=== PATIENT | female | born 1975 | race Caucasian/White ===

== ENCOUNTER 2017-03-12 11:40 | Observation (INO) ==
[2017-03-12] MEDS ORDERED: MAGNESIUM SULF RIDER 4 GM in PREMIX 1 EACH IV PRN (11:46)
[2017-03-12] MEDS ORDERED: POTASSIUM CHLORIDE 20 MEQ TABLET PO PRN (11:46)
[2017-03-12] MEDS ORDERED: ZALEPLON 5 MG CAPSULE PO PRN (11:46)
[2017-03-12] MEDS ORDERED: ACETAMINOPHEN 325 MG TABLET PO PRN (11:46)
[2017-03-12] MEDS ORDERED: MAGNESIUM SULF RIDER 2 GM in PREMIX 1 EACH IV PRN (11:46)
[2017-03-12] MEDS ORDERED: diphenhydrAMINE CAP 25 MG CAPSULE PO PRN (11:46)
[2017-03-12] MEDS ORDERED: ONDANSETRON 4 MG/2 ML VIAL IV PRN (11:46)
[2017-03-12] MEDS ORDERED: LACTULOSE 20 GM/30 ML UDCUP PO PRN (11:46)
[2017-03-12] MEDS ORDERED: DOCUSATE SODIUM 100 MG CAPSULE PO PRN (11:46)
[2017-03-12] MEDS ORDERED: PANTOPRAZOLE 40 MG TABLET PO SCH (12:00)
[2017-03-12 14:40] LABS: Basophils % 0.4 % (0.0-0.8); Eosinophils # 0.1 10*3/uL (0.0-0.87); Hematocrit 42.4 VOL% (35.7-47.0); Hemoglobin 13.9 GM/DL (12.0-16.0); Immature Granulocytes % 0.2 %; Immature Granulocytes Absolute 0.01 #; Lymphocytes # 1.6 10*3/uL (1.4-4.0); Lymphocytes % 34.4 % (21.3-54.2); Mean Corpuscular HGB Conc 32.8 GM/DL (32-36); Mean Corpuscular Hemoglobin 28 PG (27-34); Mean Corpuscular Volume 86.4 FL (87-102); Mean Platelet Volume 10.4 FL (9.6-12.0); Monocytes # 0.4 10*3/uL (0.11-0.8); Monocytes % 8.2 % (1.7-12.7); Neutrophils # 2.6 10*3/uL (1.4-7.4); Neutrophils % 53.8 % (38.7-73.9); Platelet Count 256 T/CUMM (130-400); Red Blood Count 4.91 MC/CUMM (3.8-5.5); Red Cell Distribution Width 13.1 % (9.3-17.3); White Blood Count 4.7 T/CUMM (4-12)
[2017-03-12 15:07] LABS: Albumin 3.7 G/DL (3.4-5.0); Bilirubin,Total 0.5 MG/DL (0.2-1.0); Calcium 8.5 MG/DL (8.5-10.1); Osmolality,Calculated 277.4 MOS/KG (273-304); Potassium 3.8 MMOL/L (3.5-5.1); Total Protein 7.2 G/DL (6.4-8.3)
[2017-03-12 15:20] LABS: Troponin I Only < 0.015 NG/ML (0.00-0.045)
[2017-03-12] MEDS ORDERED: ENOXAPARIN 40 MG/0.4 ML SYRINGE SUBCUT SCH (16:30)
[2017-03-12 18:59] LABS: Troponin I Only < 0.015 NG/ML (0.00-0.045)
[2017-03-13 00:39] LABS: Apearance,Urine Slightly Hazy (Clear); Bilirubin,Urine Negative (Negative); Blood, Urine Small mg/dL (Negative); Glucose,Urine (UA) Negative (Negative); Ketones,Urine Negative (Negative); Mucus,Urine Occasional /LPF (Occasional); Nitrite,Urine Negative (Negative); Protein,Urine Negative; RBC,Urine 2 /HPF (0-4); Squamous Epithelial Cell,Urine Occasional /HPF (0-10); Urine Color Yellow (Yellow); Urine Specific Gravity 1.024 (1.001-1.035); Urine Urobilinogen < 2.0 EU/DL (0.2-1.0); WBC,Urine 1 /HPF (0-6)
[2017-03-13 04:49] LABS: Basophils % 0.6 % (0.0-0.8); Eosinophils # 0.2 10*3/uL (0.0-0.87); Eosinophils % 4.1 % (0.00-10.9); Hematocrit 38.1 VOL% (35.7-47.0); Hemoglobin 12.8 GM/DL (12.0-16.0); Immature Granulocytes % 0.4 %; Immature Granulocytes Absolute 0.02 #; Lymphocytes # 2.6 10*3/uL (1.4-4.0); Lymphocytes % 49.3 % (21.3-54.2); Mean Corpuscular HGB Conc 33.6 GM/DL (32-36); Mean Corpuscular Hemoglobin 29 PG (27-34); Mean Corpuscular Volume 85.8 FL (87-102); Monocytes # 0.5 10*3/uL (0.11-0.8); Monocytes % 9.5 % (1.7-12.7); Neutrophils # 1.9 10*3/uL (1.4-7.4); Neutrophils % 36.1 % (38.7-73.9); Platelet Count 237 T/CUMM (130-400); Red Blood Count 4.44 MC/CUMM (3.8-5.5); White Blood Count 5.2 T/CUMM (4-12)
[2017-03-13 05:27] LABS: Calcium 8.7 MG/DL (8.5-10.1); Eosinophils 4 % (0-10); Free T4 (Free Thyroxine) 1.14 NG/DL (0.76-1.46); Lymphocytes 48 % (20-55); Magnesium 2.1 MG/DL (1.8-2.4); Nucleated Red Blood Cells 1 (0-5); Osmolality,Calculated 276.5 MOS/KG (273-304); Platelet Estimate Adequate; Potassium 4.3 MMOL/L (3.5-5.1); Risk Ratio 3.73; Segmented Neutrophils 39 % (50-85); Thyroid Stimulating Hormone 2.13 uIU/ml (0.358-3.74); Total Cells Counted 100; VLDL CHOLESTEROL 23.8 MG/DL
[2017-03-13 05:28] LABS: Giant Platelets Few; Hypochromasia 1+; Ovalocytes Slight
[2017-03-13 07:49] VITALS: BP 107/73
[2017-03-13] MEDS ORDERED: ASPIRIN EC 81 MG TABLET PO SCH (09:00)
== END 2017-03-13 09:37 | disposition home or self-care (01) ==
LOC: N.ADMINP → N.TELES 13:54
PROVIDERS: ADMIT Internal Medicine Cardiovascular Disease; ATTEND Internal Medicine Cardiovascular Disease